=== PATIENT | male | born 2000 | race Caucasian/White ===

== ENCOUNTER 2019-11-01 19:36 | Inpatient (IN) | payer OTHER ==
[~2019-11-01] VITALS: Ht 162.6 cm; Wt 54.4 kg
--- NOTE | 2019-11-01 19:57 | NUR ---
SE RECIBE PTE ALERTA Y ORIENTADO X 3 ESFERAS, EL CUAL LLEGA EN AMBULANCIA, EN COMPANIA DE FAMILIAR. AL MOMENTO CANALIZADO EN ANTEBRAZO RT [facility] PTE INDICA VENIR POR DOLOR DE AMBERLY, SE PRESENTA A DR BELLA Y SE UBICA EN AREA DE OBSERVACION.
== END 2019-11-02 01:30 | disposition home or self-care (01) | DRG 93 ==
LOC: ER 19:36 → SEC-K 21:44
PROVIDERS: Anesthesiology Pain Medicine
PROC: 3E0R3GC Introduction of Other Therapeutic Substance into Spinal Canal, Percutaneous Approach (ICD-10-PCS; principal; 2019-11-01 21:00)
DX: G97.0 Cerebrospinal fluid leak from spinal puncture (principal); G97.1 Other reaction to spinal and lumbar puncture